=== PATIENT | female | born 1980 | race Caucasian/White ===

== ENCOUNTER → 2020-10-30 | Emergency (ER) | payer OTHER ==
[~2020-10-30] VITALS: Ht 152.4 cm; Wt 72.6 kg
[~2020-10-30] MED LIST: CLONAZEPAM1 MG; PAROXETINE HCL20 MG; RESTORIL30 M1; TRIFLUOPERAZINE10 MG
== END | disposition home or self-care (01) ==
LOC: ER 17:04
DX: U07.1 COVID-19 (principal); R53.81 Other malaise

== ENCOUNTER 2020-11-09 11:47 | Emergency (ER) | payer OTHER ==
[~2020-11-09] VITALS: Ht 157.5 cm; Wt 75.7 kg
[2020-11-09] MEDS ORDERED: PEPCID AC20 MG PO (17:33)
[2020-11-09] MEDS ORDERED: LEVSIN/SL0.125 MG PO (17:33)
== END 2020-11-09 17:49 | disposition home or self-care (01) ==
LOC: ER 11:47
DX: K59.09 Other constipation (principal); E86.0 Dehydration

== ENCOUNTER 2021-02-12 09:27 | Emergency (ER) | payer OTHER ==
[~2021-02-12] VITALS: Ht 152.4 cm; Wt 77.1 kg
[~2021-02-12 09:27] MED LIST changes: +LEVSIN/SL0.125 MG PO; +PEPCID AC20 MG PO
[2021-02-12] MEDS ORDERED: ZYRTEC10 MG PO (13:12)
[2021-02-12] MEDS ORDERED: MUCINEX DM ER1 EAC1 PO (13:12)
[2021-02-12] MEDS ORDERED: ACETAMINOPHEN650 M2 PO (13:12)
== END 2021-02-12 13:13 | disposition home or self-care (01) ==
LOC: ER 09:27
DX: J06.9 Acute upper respiratory infection, unspecified (principal); Z20.822 Contact with and (suspected) exposure to COVID-19; J30.89 Other allergic rhinitis

== ENCOUNTER 2021-02-26 08:00 | Outpatient (CLI) | payer OTHER ==
[~2021-02-26 08:00] MED LIST changes: +ACETAMINOPHEN650 M2 PO; +MUCINEX DM ER1 EAC1 PO; +ZYRTEC10 MG PO
== END 2021-02-26 08:30 | disposition home or self-care (01) ==
LOC: PPH VACUNA 08:00
DX: Z23 Encounter for immunization (principal)

== ENCOUNTER 2021-03-19 08:00 | Outpatient (CLI) | payer OTHER | END 2021-03-19 08:30 | disposition home or self-care (01) | LOC: PPH VACUNA 08:00 | PROVIDERS: ATTEND Emergency Medicine Pediatric Emergency Medicine | DX: Z23 Encounter for immunization (principal) ==

== ENCOUNTER 2022-03-20 09:12 | Emergency (ER) | payer OTHER ==
[~2022-03-20] VITALS: Ht 165.1 cm; Wt 79.8 kg
== END 2022-03-20 13:35 | disposition home or self-care (01) ==
LOC: ER 09:12
DX: J03.90 Acute tonsillitis, unspecified (principal)

== ENCOUNTER → 2022-11-13 | Emergency (ER) | payer OTHER ==
[~2022-11-13] VITALS: Ht 167.6 cm; Wt 68.0 kg
== END | disposition home or self-care (01) ==
LOC: ER 13:13
DX: G44.89 Other headache syndrome (principal)

== ENCOUNTER 2023-05-12 13:46 | Emergency (ER) | payer OTHER ==
[~2023-05-12] VITALS: Ht 160 cm; Wt 63.5 kg
[2023-05-12] MEDS ORDERED: PEPCID AC20 MG PO (15:39)
[2023-05-12] MEDS ORDERED: ABATINEX680 MG PO (15:39)
== END 2023-05-12 15:55 | disposition home or self-care (01) ==
LOC: ER 13:46
DX: R19.7 Diarrhea, unspecified (principal); R10.13 Epigastric pain